=== PATIENT | female | born 1965 | race Caucasian/White ===

== ENCOUNTER 2023-08-16 13:44 | Emergency (ER) | payer OTHER, SELFPAY ==
[2023-08-16 13:51] VITALS: BP 138/99
--- NOTE | 2023-08-16 15:20 | ED.GENMED ---
History of Present Illness
General
Chief Complaint: DVT/Possible Blood Clot
Time Seen by Provider: 08/16/23 15:19
Travel History
Have you had any contact with someone who has COVID-19?: No
Do you have any symptoms of coronavirus? Fever > 100 degrees, chills, cough, shortness of breath, sore throat, loss of taste or smell, muscle aches, or headache?: No
History of Present Illness
History of Present Illness:
HPI: Patient initially went to urgent care complaining of right calf pain and was sent here for further evaluation. The pain occurred abruptly today however she did have a fall a few days ago where she landed on both knees. She has noted left knee
pain but only minimal right-sided knee discomfort. She initially went to urgent care. However pain is not really in her knee but rather in the calf region.
EXAM:
GENERAL: Well appearing in no distress
HEENT: Moist oral mucosa
NEUROLOGIC: Excellent strength all extremities, no coordination deficits
PSYCHIATRIC: Appropriate mental status, normal insight and judgement
EXTREMITIES: Hands/fingers consistent with rheumatoid arthritis, there is no significant bony tenderness to the right knee, there is fairly good active range of motion at the right knee, there is mild tenderness to the proximal right calf
musculature, negative Nancie test, no evidence of infection
SKIN: No rash, no lesions
ED COURSE:
3:40 PM: I initially evaluated patient
NUMBER AND COMPLEXITY OF PROBLEMS ADDRESSED AT THE ENCOUNTER
� Chronic conditions affecting care: GERD, has had tonsillectomy
� Acute Exacerbation and/or Progression of Chronic Illness: This is an acute problem
� Differential Diagnosis includes: Gastroc strain/tear, DVT, Cody's cyst, rheumatoid/osteoarthritis
AMOUNT AND/OR COMPLEXITY OF DATA TO BE REVIEWED AND ANALYZED
� I performed an independent evaluation of and my interpretation is:
EKG:
CT:
X-rays:
Laboratory Studies:
Other: Ultrasound negative for DVT
� Review of other/old records: The patient had colonoscopy in 2021
� Clinical information was obtained by an independent historian: I spoke to mother at bedside
� Prescriptions/Medications Considered but not given:
� Further testing considered but not performed: Offered and considered x-ray imaging however the patient agrees that we probably will not see anything from a bony standpoint at the knee as most of her pain is at the level of the
calf.
RISK OF COMPLICATIONS AND/OR MORBIDITY OR MORTALITY OF PATIENT MANAGEMENT
� Social determinants of health affecting care: Lives at home
� Discussion with other providers:
� Escalation of care including admission/observation vs risk of discharge considered: Ultrasound imaging shows no evidence of DVT but does show small Cody's cyst. I recommend that she follows up with orthopedics.
Phy Exam
Physical Exam
Physical Exam:
See HPI
Course
Orders/Labs/Results
Orders:
Orders
08/16/23 14:02
US Periph Venous LOWER Ext RT Urgent
Comment:
Reason For Exam: right calf pain
08/16/23 15:56
Crutches-Treatment ONCE
Vital Signs
Initial and Last Documented VS:
Initial Vital Signs
Pulse Resp BP Pulse Ox
113 20 138/99 100
08/16/23 13:51 08/16/23 13:51 08/16/23 13:51 08/16/23 13:51
Last Documented Vital Signs
Pulse Resp BP Pulse Ox
113 20 138/99 100
08/16/23 13:51 08/16/23 13:51 08/16/23 13:51 08/16/23 13:51
*Critical Care Note
Total Time (30-74mins, 75-104mins- exclusive of procedures): Not Applicable
ED Attending Note
-
Portions of this chart may have been created with voice recognition software.� Occasional wrong word or��sound alike� substitutions may have occurred due to the inherent limitations of voice recognition software.
Discharge Plan
Departure
Patient Disposition: Home (Routine Discharge)
Date of Disposition: 08/16/23
Time of Disposition: 15:55
Patient with high blood pressure during this ER visit?: Yes
Discharge Problem:
Cody's cyst
Instructions: Cody's Cyst (DC)
Referrals:
Jigar Narayanan MD [Active] - Follow up in 2-3 days
Mansoor Christianson MD [Family Provider] -
Activity Restrictions/Additional Instructions:
There is no sign for a blood clot in the leg. There is a small Cody's cyst. This commonly will get better on its own. However given your ongoing symptoms, I do recommend that you follow-up with orthopedics. I have given you the contact
information for local orthopedist.
Interventions
Interventions:
*Risk Screen - Suicide Last Done: 08/16/23 13:54
*General Assessment Last Done: 08/16/23 13:54
*Neglect/Abuse Screening Last Done: 08/16/23 13:54
ED- Cardiac Assessment Last Done: 08/16/23 15:00
ED- Pulmonary Assessment Last Done: 08/16/23 15:00
ED-Peripheral Vascular Assessment Last Done: 08/16/23 15:00
ED-Skin Assessment Last Done: 08/16/23 15:00
== END 2023-08-16 16:29 | disposition home or self-care (01) ==
LOC: EMR 13:44
PROVIDERS: EMERGENCY PHYSICIAN Emergency Medicine; FAMILY PHYSICIAN Internal Medicine
DX: M71.21 Synovial cyst of popliteal space [Baker], right knee (principal); M25.562 Pain in left knee; M79.661 Pain in right lower leg; W19.XXXA Unspecified fall, initial encounter; R03.0 Elevated blood-pressure reading, without diagnosis of hypertension; K21.9 Gastro-esophageal reflux disease without esophagitis; M06.9 Rheumatoid arthritis, unspecified
CPT/HCPCS: 99284; 93971

== ENCOUNTER → 2023-09-15 12:09 | Outpatient (REF) | payer OTHER, SELFPAY | LOC: WDC 12:09 | PROVIDERS: ATTENDING PHYSICIAN Obstetrics & Gynecology; FAMILY PHYSICIAN Internal Medicine | DX: Z12.31 Encounter for screening mammogram for malignant neoplasm of breast (principal) | CPT/HCPCS: 77063; 77067 ==

== ENCOUNTER → 2023-09-21 09:12 | Outpatient (REF) | payer OTHER, SELFPAY | LOC: WDC 09:12 | PROVIDERS: ATTENDING PHYSICIAN Obstetrics & Gynecology; FAMILY PHYSICIAN Internal Medicine | DX: R92.8 Other abnormal and inconclusive findings on diagnostic imaging of breast (principal) | CPT/HCPCS: 76642 ==

== ENCOUNTER → 2023-11-12 07:54 | Outpatient (REF) | payer OTHER, SELFPAY ==
[2023-11-12 09:25] LABS: % Basophils 1.2 % (0-2); % Immature Granulocytes 0.3 % (0-0.5); % Lymphocytes 24.7 % (20.5-51.1); % Monocytes 9.6 % (1.7-9.3); % Neutrophils 62.2 % (42.2-75.2); Absolute Basophils 0.1 10^3/uL (0-0.2); Absolute Eosinophils 0.1 10^3/uL (0-0.7); Absolute Lymphocytes 1.7 10^3/uL (1.2-3.4); Absolute Monocytes 0.7 10^3/uL (0.1-0.6); Absolute Neutrophils 4.3 10^3/uL (1.4-6.5); Hematocrit 41.1 % (37.0-47.0); Hemoglobin 13.3 g/dL (12.0-16.0); Mean Corp Hgb Conc. 32.4 g/dL (33.0-37.0); Mean Corpuscular Hgb 29.8 pg (27.0-31.0); Mean Corpuscular Volume 92.2 fL (81.0-99.0); Mean Platelet Volume 9.2 fL (7.4-10.4); Nucleated Red Blood Cells % 0 %; Platelet Count 394 10^3/uL (130-400); Red Blood Cell Count 4.46 10^6/uL (4.20-5.40); Red Cell Dist. Width 13.4 % (11.5-14.5); White Blood Cell Count 6.9 10^3/uL (4.8-10.8)
[2023-11-12 10:50] LABS: Blood Urea Nitrogen 17 mg/dl (7-17); Calcium 10.9 mg/dl (8.4-10.2); Carbon Dioxide 29 mmol/L (22-30); Chloride 99 mmol/L (98-107); Glucose 91 mg/dl (70-99); Potassium 5.8 mmol/L (3.5-5.1); Sodium 139 mmol/L (135-145); eGFR > 60.00
== END ==
LOC: RCS 07:54
PROVIDERS: ATTENDING PHYSICIAN Orthopaedic Surgery; FAMILY PHYSICIAN Internal Medicine
DX: Z01.818 Encounter for other preprocedural examination (principal)
CPT/HCPCS: 36415; 80048; 85025; 93005

== ENCOUNTER → 2023-12-07 09:35 | Outpatient (REF) | payer OTHER, SELFPAY ==
[2023-12-07 12:27] LABS: Blood Urea Nitrogen 16 mg/dl (7-17); Calcium 10.4 mg/dl (8.4-10.2); Carbon Dioxide 33 mmol/L (22-30); Chloride 97 mmol/L (98-107); Glucose 85 mg/dl (70-99); Potassium 5.3 mmol/L (3.5-5.1); Sodium 139 mmol/L (135-145); eGFR > 60.00
== END ==
LOC: REG 09:35
PROVIDERS: ATTENDING PHYSICIAN Orthopaedic Surgery Hand Surgery; FAMILY PHYSICIAN Internal Medicine
DX: Z01.818 Encounter for other preprocedural examination (principal)
CPT/HCPCS: 36415; 80048

== ENCOUNTER 2023-12-25 11:24 | Outpatient (RCR) | payer OTHER, SELFPAY | END 2023-12-25 23:59 | disposition home or self-care (01) | LOC: RPT 11:24 | PROVIDERS: ATTENDING PHYSICIAN Orthopaedic Surgery; FAMILY PHYSICIAN Internal Medicine | DX: Z47.1 Aftercare following joint replacement surgery (principal); Z96.651 Presence of right artificial knee joint; R26.89 Other abnormalities of gait and mobility; Z73.6 Limitation of activities due to disability | CPT/HCPCS: 97010; 97110; 97162 ==

== ENCOUNTER 2024-01-25 14:15 | Outpatient (RCR) | payer OTHER, SELFPAY | END 2024-01-25 23:59 | disposition home or self-care (01) | LOC: RPT 14:15 | PROVIDERS: ATTENDING PHYSICIAN Orthopaedic Surgery; FAMILY PHYSICIAN Internal Medicine | DX: Z47.1 Aftercare following joint replacement surgery (principal); Z96.651 Presence of right artificial knee joint; R26.89 Other abnormalities of gait and mobility; Z73.6 Limitation of activities due to disability; M25.561 Pain in right knee | CPT/HCPCS: 97010; 97110; 97112; 97116 ==

== ENCOUNTER 2024-02-05 10:53 | Outpatient (RCR) | payer OTHER, SELFPAY | END 2024-02-05 13:18 | disposition home or self-care (01) | LOC: RPT 10:53 | PROVIDERS: ATTENDING PHYSICIAN Orthopaedic Surgery; FAMILY PHYSICIAN Internal Medicine | DX: Z47.1 Aftercare following joint replacement surgery (principal); Z96.651 Presence of right artificial knee joint; R26.89 Other abnormalities of gait and mobility; Z73.6 Limitation of activities due to disability | CPT/HCPCS: 97010; 97110 ==

== ENCOUNTER 2024-03-12 10:08 | Emergency (ER) | payer OTHER, SELFPAY ==
[2024-03-12 10:14] VITALS: BP 148/102
[2024-03-12 10:38] VITALS: BMI 35.3
--- NOTE | 2024-03-12 10:42 | ED.GENMED ---
History of Present Illness
General
Chief Complaint: Chest Problem
Source: patient
Exam Limitations: none
Time Seen by Provider: 03/12/24 10:31
Nursing documentation reviewed up to this point in time: agreed with
History of Present Illness
History of Present Illness:
Patient is a 58-year-old female past medical history of RA reflux presents to the ER for evaluation. Patient reports for the past week she has had heart racing. 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
her diclofenac was increased from 75 mg a day to 150 mg a day. In addition on March 02 she received COVID-vaccine and then on Mar 04 she started heart palpitations and headache. She denies any associated chest pain. She reports she does
feel mildly winded after walking down steps but this is not new for her. She reports headache has been gradual denies any nausea vomiting associated with the headache. Denies any blurry vision. Has not taken anything for her headache. Denies any
recent illness fever chills. Denies any recent trauma. She is not on blood thinners.
She does drink 2 cups of coffee a day denies any new [id number] cough cold medicines
Review of Systems
Review of Systems
Allergies reviewed?: Yes
All Other Systems: ROS reviewed and negative except as documented in HPI and ROS
Constitutional: Reports no symptoms; Denies fever, fatigue or chills
EENT: Reports no symptoms
Respiratory: Reports no symptoms
Cardiac: Reports palpitations; Denies chest pain, diaphoresis or syncope
ABD/GI: Reports no symptoms
: Reports no symptoms
Musculoskeletal: Reports no symptoms
Skin: Reports no symptoms
Neurological: Reports headache; Denies dizzy, weakness or numbness
Psychiatric: Reports no symptoms
Phy Exam
General Physical Exam
General Presentation: no apparent distress
General age: appears stated age
General Skin: warm and dry
General Habitus: normal
General Mental: alert
General Hydration: appears well hydrated
Cardiovascular Exam
Cardiovascular Exam: regular rate/rhythm, no murmur and normal peripheral pulses
Pulmonary Exam
Pulmonary Exam: lungs clear and no respiratory distress
Neurological Exam
Neurological Exam: alert and oriented x3
Musculoskeletal Exam
Musculoskeletal Exam: full ROM
Skin Exam
Skin Exam: normal color and warm/dry
Psychiatric Exam
Psychiatric Exam: normal mood/affect
Course
Orders/Labs/Results
Orders:
Orders
03/12/24 10:09
Electrocardiogram (*1) Urgent
Reason for Study: Chest Pain
EKG- Treatment ONCE
03/12/24 10:45
CMP [Comprehensive Metabolic Panel] Urgent
Complete Blood Count/With Diff Urgent
DDimer [D-Dimer] Urgent
03/12/24 11:04
Add On- LAB Urgent
Tests Added?: tsh w/ reflexive t4
03/12/24 11:34
TSH Reflex To Free T4 Urgent
Comment: ADD
03/12/24 12:44
CT Head W/o Iv Contrast Urgent
Comment:
Reason For Exam: headache x 4 d
Abnormal Lab Results
03/12/24
10:45
Carbon Dioxide 31 H mmol/L
(22-30)
Glucose 112 H mg/dl
(70-99)
Calcium 10.5 H mg/dl
(8.4-10.2)
03/12/24 10:45
03/12/24 10:45
Vital Signs
Initial and Last Documented VS:
Initial Vital Signs
Temp Pulse Resp BP Pulse Ox
98.5 F 115 20 148/102 98
03/12/24 10:14 03/12/24 10:14 03/12/24 10:14 03/12/24 10:14 03/12/24 10:14
Last Documented Vital Signs
Temp Pulse Resp BP Pulse Ox
98.5 F 99 13 135/75 99
03/12/24 10:14 03/12/24 12:45 03/12/24 12:45 03/12/24 12:00 03/12/24 12:45
MDM/Problems Addressed
Differential Diagnosis Includes:
Not limited to palpitations headache
MDM/Problems Addressed:
Patient is a 4-year-old female who presents to the ER complaining palpitations and headache. She recently had her diclofenac increased and also had COVID vaccines she reports symptoms of palpitations and headache started shortly after receiving
COVID-vaccine. She complains of heart racing denies any associated chest pain. She denies any shortness of breath. She reports she is always mildly winded when she walks down up steps. She presents awake alert no acute distress denies any fever
chills nausea vomiting. She reports the headache has been persistent for the past couple days. Typically she does not get headaches.
No acute findings on EKG normal labs including normal D-dimer normal TSH. Will check CT and if negative DC home with follow-up with family doctor as well as cardiology if persistent palpitations she may likely need Holter monitor.
*Pulse Oximetry
Patient hypoxic: no
*EKG
Interpretation: abnormal
Heart Rate: 108
Rate: tachycardiac
Rhythm: sinus
Ischemia: non-specific ST changes
*Critical Care Note
Total Time (30-74mins, 75-104mins- exclusive of procedures): Not Applicable
ED Attending Note
-
Portions of this chart may have been created with voice recognition software.� Occasional wrong word or��sound alike� substitutions may have occurred due to the inherent limitations of voice recognition software.
Discharge Plan
Departure
Patient Disposition: Home (Routine Discharge)
Date of Disposition: 03/12/24
Time of Disposition: 13:28
Patient with high blood pressure during this ER visit?: Yes
Condition: Fair
Covid-19: Not Applicable
Discharge Problem:
Heart palpitations, Headache
Instructions: Headache, Adult ED, Palpitations ED, BLOOD PRESSURE
Referrals:
Mckay Andino DO [Active] -
Mansoor Christianson MD [Family Provider] -
Activity Restrictions/Additional Instructions:
As discussed patient is stable hydrated get plenty rest. Follow-up with family doctor the next of days for reevaluation of your symptoms. You may take Tylenol for headaches. Follow-up with cardiology as needed for further evaluation of
palpitations. Avoid caffeine alcohol chocolate etc.
Return if any worsening of symptoms.
Interventions
Interventions:
*Risk Screen - Suicide Last Done: 03/12/24 10:09
*General Assessment Last Done: 03/12/24 10:14
*Neglect/Abuse Screening Last Done: 03/12/24 10:14
ED- Fall Risk Assessment Last Done: 03/12/24 10:41
*ED COVID-19 Vaccine History Last Done: 03/12/24 10:41
ED- Cardiac Assessment Last Done: 03/12/24 10:41
ED- Pulmonary Assessment Last Done: 03/12/24 10:41
Discharge Date and Time
Print Language: BULGARIAN
[2024-03-12 10:57] LABS: % Basophils 1.3 % (0-2); % Eosinophils 1.6 % (0-6); % Immature Granulocytes 0.1 % (0-0.5); % Lymphocytes 28.8 % (20.5-51.1); % Monocytes 8.2 % (1.7-9.3); Absolute Basophils 0.1 10^3/uL (0-0.2); Absolute Eosinophils 0.1 10^3/uL (0-0.7); Absolute Monocytes 0.6 10^3/uL (0.1-0.6); Absolute Neutrophils 4.1 10^3/uL (1.4-6.5); Hematocrit 40.7 % (37.0-47.0); Hemoglobin 13.7 g/dL (12.0-16.0); Mean Corp Hgb Conc. 33.7 g/dL (33.0-37.0); Mean Corpuscular Hgb 30.6 pg (27.0-31.0); Mean Corpuscular Volume 90.8 fL (81.0-99.0); Mean Platelet Volume 8.6 fL (7.4-10.4); Nucleated Red Blood Cells % 0 %; Platelet Count 362 10^3/uL (130-400); Red Blood Cell Count 4.48 10^6/uL (4.20-5.40); Red Cell Dist. Width 13.1 % (11.5-14.5); White Blood Cell Count 6.9 10^3/uL (4.8-10.8)
[2024-03-12 11:00] VITALS: BP 129/76
[2024-03-12 11:28] LABS: ALT (SGPT) 22 U/L (0-35); AST (SGOT) 29 U/L (14-36); Albumin 4.5 g/dl (3.5-5.0); Alkaline Phosphatase 71 U/L (38-126); Blood Urea Nitrogen 17 mg/dl (7-17); Calcium 10.5 mg/dl (8.4-10.2); Carbon Dioxide 31 mmol/L (22-30); Chloride 98 mmol/L (98-107); Estimated Creatinine Clearance 63 ml/min; Glucose 112 mg/dl (70-99); Potassium 4.3 mmol/L (3.5-5.1); Sodium 139 mmol/L (135-145); Total Bilirubin 0.4 mg/dl (0.2-1.3); Total Protein 7.3 g/dl (6.3-8.2); eGFR > 60.00
[2024-03-12 11:33] LABS: D-Dimer 0.48 ug/mlFEU (0.00-0.50)
[2024-03-12 12:00] VITALS: BP 135/75
[2024-03-12] MEDS: TYLENOL 650 MG PO (13:41)
== END 2024-03-12 13:52 | disposition home or self-care (01) ==
LOC: EMR 10:08
PROVIDERS: Nurse Practitioner; EMERGENCY PHYSICIAN Emergency Medicine; FAMILY PHYSICIAN Internal Medicine
DX: R51.9 Headache, unspecified (principal); R00.2 Palpitations; R00.0 Tachycardia, unspecified; M06.9 Rheumatoid arthritis, unspecified; K21.9 Gastro-esophageal reflux disease without esophagitis; M19.90 Unspecified osteoarthritis, unspecified site; M81.0 Age-related osteoporosis without current pathological fracture; Z88.3 Allergy status to other anti-infective agents; Z88.0 Allergy status to penicillin; Z88.2 Allergy status to sulfonamides; Z88.8 Allergy status to other drugs, medicaments and biological substances; Z96.651 Presence of right artificial knee joint
CPT/HCPCS: 99285; 70450; 80053; 84443; 85025; 85379; 93005

== ENCOUNTER → 2024-03-22 13:09 | Outpatient (REF) | payer OTHER, SELFPAY | LOC: RCS 13:09 | PROVIDERS: ATTENDING PHYSICIAN Internal Medicine | DX: R00.2 Palpitations (principal); I65.23 Occlusion and stenosis of bilateral carotid arteries; R94.31 Abnormal electrocardiogram [ECG] [EKG]; R51.9 Headache, unspecified; Z23 Encounter for immunization | CPT/HCPCS: 93225; 93226 ==

== ENCOUNTER → 2024-04-01 08:03 | Outpatient (REF) | payer OTHER, SELFPAY | LOC: DHCBC/DCA 08:03 | PROVIDERS: ATTENDING PHYSICIAN Internal Medicine | DX: R00.2 Palpitations (principal); R94.31 Abnormal electrocardiogram [ECG] [EKG] | CPT/HCPCS: 78452; 93017; A9500; J2785 ==

== ENCOUNTER → 2024-05-10 15:06 | Outpatient (REF) | payer OTHER, SELFPAY | LOC: RAD 15:06 | PROVIDERS: ATTENDING PHYSICIAN Internal Medicine | DX: I65.23 Occlusion and stenosis of bilateral carotid arteries (principal) | CPT/HCPCS: 93880 ==

== ENCOUNTER → 2024-08-08 07:50 | Outpatient (REF) | payer OTHER, SELFPAY | LOC: RCS 07:50 | PROVIDERS: ATTENDING PHYSICIAN Internal Medicine Cardiovascular Disease; FAMILY PHYSICIAN Internal Medicine | DX: R00.2 Palpitations (principal); R06.02 Shortness of breath; R00.0 Tachycardia, unspecified | CPT/HCPCS: 71046; 93306 ==

== ENCOUNTER → 2024-09-29 12:38 | Outpatient (REF) | payer OTHER, SELFPAY | LOC: WDC 12:38 | PROVIDERS: ATTENDING PHYSICIAN Obstetrics & Gynecology; FAMILY PHYSICIAN Internal Medicine | DX: Z12.31 Encounter for screening mammogram for malignant neoplasm of breast (principal) | CPT/HCPCS: 77063; 77067 ==